=== PATIENT | female | born 2000 | race Hispanic/Latino ===

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

== ENCOUNTER → 2019-10-18 | Outpatient (CLI) | payer OTHER, SELFPAY ==
[~2019-10-18] MED LIST changes: +IBUP-1022 PO; +MOTR200T44 PO; +ZOFR4TAB14 PO; -ZOFR4TAB3 PO
--- NOTE | 2019-10-18 19:17 | REP ---
HISTORY: Pain. FINDINGS: No acute fracture or destructive osseous lesion. Electronically Signed by Tom Orozco DO 10/18/2019 07:35 P
== END ==
LOC: M LRY 18:08
PROVIDERS: ATTEND Physician Assistant
DX: M79.632 Pain in left forearm (principal)

== ENCOUNTER → 2019-12-16 | Outpatient (CLI) | payer OTHER ==
[2019-12-16 18:43] LABS: APPEARANCE, URINE HAZY (CLEAR); BACTERIA, URINE AUTO 1+ (NEGATIVE); BILIRUBIN, URINE AUTO NEGATIVE (NEGATIVE); BLOOD, URINE BLOOD NEGATIVE (NEGATIVE); COLOR, URINE AMBER (YELLOW); GLUCOSE, URINE (UA) AUTO NEGATIVE (NEGATIVE); KETONE, URINE AUTO NEGATIVE (NEGATIVE); LEUKOCYTE ESTERASE, URINE AUTO NEGATIVE (NEGATIVE); MUCUS, URINE SMALL (NEGATIVE); NITRITE, URINE AUTO POSITIVE (NEGATIVE); PROTEIN, URINE AUTO NEGATIVE (NEGATIVE); RBC, URINE AUTO 1 /HPF (0-3); SPECIFIC GRAVITY URINE AUTO 1.012 (1.002-1.035); SQUAMOUS EPITHELIAL CELL UR AU 1 /HPF (0-6); WBC, URINE AUTO 3 /HPF (0-3)
== END ==
LOC: M LRY 15:10
PROVIDERS: ATTEND Nurse Practitioner Adult Health
DX: R30.0 Dysuria (principal)